=== PATIENT | female | born 1995 | race Two or more races ===

== ENCOUNTER 2017-05-22 00:01 | Emergency (ER) | payer BC ==
[~2017-05-22] VITALS: Ht 152.4 cm; Wt 46.7 kg
[~2017-05-22 00:01] MED LIST: CIPRO500 MG PO; IMODIUM2 MG ORAL; METRONIDAZOLE500 MG ORAL; NORCO 5-325 TA1 EACH ORAL; ZOFRAN ODT4 MG ORAL; ZOFRAN4 M1 ORAL
[2017-05-22] MEDS ORDERED: Ketorolac 30mg Inj IV ONE (00:45)
[2017-05-22 00:55] LABS: APPEARANCE,URINE CLEAR; KETONES,URINE NEGATIVE (NEGATIVE); LEUKOCYTE ESTERASE ,URINE 2+ (NEGATIVE); NITRITE,URINE NEGATIVE (NEGATIVE); PH,URINE 6 (4.5-8.0); PROTEIN,URINE NEGATIVE (NEGATIVE); UROBILINOGEN,URINE NORMAL MG/DL (0.0-1.0)
[2017-05-22 00:59] LABS: BASOPHILS % (AUTO) 0.7 % (0.0-2.0); EOSINOPHILS % (AUTO) 3.8 % (0.0-3.0); LYMPHOCYTES % (AUTO) 35.3 % (20.0-45.0); MEAN CORPUSCULAR HEMOGLOBIN 31.8 PG (27.0-31.0); MEAN CORPUSCULAR HGB CONC 32.2 G/DL (32.0-36.0); MEAN CORPUSCULAR VOLUME 99 FL (80-99); MEAN PLATELET VOLUME 7.8 FL (6.5-10.1); NEUTROPHILS % (AUTO) 53.1 % (45.0-75.0); PLATELET COUNT 248 K/UL (150-450); RED BLOOD COUNT 4.04 M/UL (4.20-5.40); RED CELL DISTRIBUTION WIDTH 12.1 % (11.6-14.8); WHITE BLOOD COUNT 6.9 K/UL (4.8-10.8)
[2017-05-22 01:05] LABS: RBC,URINE 0-2 /HPF (0 - 2)
[2017-05-22 01:06] LABS: SQUAMOUS EPITHELIAL CELL,UR MODERATE /LPF (NONE/OCC)
[2017-05-22 01:23] LABS: ALANINE AMINOTRANSFERASE 9 U/L (3-33); ALBUMIN/GLOBULIN RATIO 2.1 (1.0-2.7); ANION GAP 14 (5-15); ASPARTATE AMINO TRANSFERASE 14 U/L (5-40); CALCIUM 9.4 mg/dL (8.6-10.2); CARBON DIOXIDE 25 mEQ/L (20-30); CHLORIDE 103 mEQ/L (98-107); CREATININE 0.7 mg/dL (0.5-0.9); GLOMERULAR FILTRATION RATE > 60 mL/min (>60); HEMOLYSIS 4; LIPASE 29 U/L (< 60); POTASSIUM 4.4 mEQ/L (3.4-4.9); SODIUM 142 mEQ/L (135-145); TOTAL PROTEIN 6.9 g/dL (6.6-8.7)
[2017-05-22] MEDS ORDERED: ZOFRAN4 MG ORAL (02:58)
[2017-05-22 03:00] VITALS: BP 108/55
[2017-05-22 03:04] VITALS: BP 108/55
--- NOTE | 2017-05-22 03:09 | Emergency Room Report ---
History of Present Illness General Chief Complaint: Abdominal Pain Source: Patient Present Illness HPI Is a 21-year-old female with a history of malrotation of the midgut requiring surgery. Since then she been having abdominal pain with vomiting and diarrhea. She present with abdominal pain for a week. No fever or chills. No nausea no vomiting. Pain is crampy in nature to the upper quadrant area. Vomiting is nonbloody nonbilious. Diarrhea is watery. Ibuprofen now. Pain is 7/10. No urinary complaint. Allergies: Coded Allergies: CODEINE (Unverified Allergy, Unknown, 05/01/15) MORPHINE (Verified Allergy, Unknown, 08/18/11) Patient History Past Medical History: see triage record, old chart reviewed Past Surgical History: other Pertinent Family History: none Social History: Denies: smoking Last Menstrual Period: LAST SUNDAY Now: No Immunizations: other Reviewed Nursing Documentation: PMH: Agreed, PSxH: Agreed Nursing Documentation-PMH Hx Asthma: Yes Review of Systems Eye: Denies: blurred vision, eye pain ENT: Denies: ear pain, nose congestion, throat swelling Respiratory: Denies: cough, shortness of breath Cardiovascular: Denies: chest pain, palpitations Gastrointestinal: Reports: abdominal pain, diarrhea, nausea, vomiting Musculoskeletal: Denies: back pain, joint pain Skin: Denies: rash Neurological: Denies: headache, numbness Endocrine: Denies: increased thirst, increased urine Hematologic/Lymphatic: Denies: easy bruising All Other Systems: negative except mentioned in HPI Physical Exam Vital Signs Date Time Temp Pulse Resp B/P Pulse Ox O2 Delivery O2 Flow Rate FiO2 05/22/17 00:09 98.2 71 18 120/72 100 Room Air vitals normal Sp02 EP Interpretation: reviewed, normal General Appearance: well appearing, no apparent distress, alert Head: normocephalic, atraumatic Eyes: bilateral eye EOMI, bilateral eye PERRL ENT: hearing grossly normal, normal pharynx Neck: full range of motion, supple, no meningismus Respiratory: chest non-tender, lungs clear, normal breath sounds Cardiovascular #1: regular rate, rhythm, no murmur Gastrointestinal: normal bowel sounds, no mass, no organomegaly, no bruit, non- distended, tenderness - Mild, epigastric Musculoskeletal: back normal, gait/station normal, normal range of motion Psychiatric: mood/affect normal Skin: warm/dry Medical Decision Making Diagnostic Impression: Primary Impression: Abdominal pain Qualified Codes: R10.84 - Generalized abdominal pain Additional Impressions: Nausea & vomiting Qualified Codes: R11.2 - Nausea with vomiting, unspecified Diarrhea Qualified Codes: R19.7 - Diarrhea, unspecified ER Course She present with abdominal pain. No evidence of obstruction or infection. Pain better now. We'll discharge him. Lab Results Impression labs unremarkable CT/MRI/US Diagnostic Results CT/MRI/US Diagnostic Results : Imaging Test Ordered: CT abdomen and pelvis Impression read by radiologist. No acute process. Last Vital Signs Date Time Temp Pulse Resp B/P Pulse Ox O2 Delivery O2 Flow Rate FiO2 05/22/17 00:09 98.2 71 18 120/72 100 Room Air Status: improved Disposition: HOME, SELF-CARE Condition: Stable Scripts Ondansetron (Zofran) 4 Mg Tablet 4 MG ORAL Q6H Y for Nausea & Vomiting, #30 TAB 0 Refills Prov: BOZENA RAM M.D. 05/22/17 Referrals: NOT CHOSEN [facility]/,REFERRING (PCP) Patient Instructions: Abdominal Pain, Adult Additional Instructions: followup with your DrAnayeli in 3-7 day. Return if worse. BOZENA RAM M.D. May 22, 2017 03:09
--- NOTE | 2017-05-22 11:02 | Diagnostic Imaging Report ---
Indications: Abdominal pain Technique: Continuous helical CT imaging of the abdomen and pelvis was performed with automatic exposure control following administration of nonionic IV contrast only, on a Siemens sensation [address] scanner. Axial, coronal, sagittal images were reconstructed at 5 mm slice thickness. No oral contrast was administered per requesting physician's order, despite no contraindications listed in either submitted clinical data or tech note.. CTDI volume(s): 11 mGy Total DLP: 513 mGy-cm Findings: Comparison: 05/01/2015 Again, of oral contrast limits evaluation of gastrointestinal tract, nondilated throughout. Appendix unremarkable. No obvious mural thickening, adjacent stranding, extraluminal gas or fluid collections identified. No bladder contracted, limiting evaluation. Periportal edema, mesenteric varices again noted. Portal splenic veins remain patent. Pancreas, spleen, adrenal glands, kidneys, unopacified ureters and urinary bladder, uterus, bilateral adnexal regions, remaining vascular structures, retroperitoneum, mesentery, remainder visualized abdominopelvic anatomy unremarkable. Lung bases and adjacent pleural surfaces clear. No focal skeletal abnormalities are identified. IMPRESSION: No evidence of acute abdominopelvic disease, with limitation as described. Subtle but potentially significant abnormalities the gastrointestinal tract may be missed. Repeat CT scan with full oral and IV contrast preparation recommended for more complete evaluation, as clinically indicated Limited evaluation of gallbladder due to contraction Persistent mild periportal edema. Diagnostic possibilities include elevated right heart pressure, fluid overload, hepatitis, less likely neoplasm Persistent mesenteric varices, etiology indeterminate This correlates with [facility] preliminary report.
== END 2017-05-22 03:05 | disposition home or self-care (01) ==
LOC: EMR 00:44
DX: R10.9 Unspecified abdominal pain (principal); J45.909 Unspecified asthma, uncomplicated; R11.2 Nausea with vomiting, unspecified; R19.7 Diarrhea, unspecified; Z88.6 Allergy status to analgesic agent
CPT/HCPCS: 36415; 74177; 80053; 81003; 81025; 83690; 85025; 96374; 96375; 99284; J1885; J2405; Q9967

== ENCOUNTER 2017-12-28 22:30 | Emergency (ER) | payer BC ==
[~2017-12-28] VITALS: Ht 160 cm; Wt 46.7 kg
[~2017-12-28 22:30] MED LIST changes: +ZOFRAN4 MG ORAL
[2017-12-28] MEDS ORDERED: NKM (22:46)
[2017-12-28 23:27] VITALS: BP 113/78
[2017-12-28] MEDS ORDERED: IBUPROFEN600 MG ORAL (23:40)
--- NOTE | 2017-12-28 23:41 | Emergency Room Report ---
History of Present Illness General Chief Complaint: Sore Throat Source: Patient Present Illness HPI Is a 22-year-old female with a past medical history. She presents with chief complaint of sore throat and itching for the last 3 days. No nausea no vomiting. No fever. Also her thigh cough. Course is to voice. Pain is 7/10. Worse with swallowing. No drooling. Allergies: Coded Allergies: AMOXICILLIN (Verified Allergy, Unknown, 12/28/17) CODEINE (Unverified Allergy, Unknown, 05/01/15) MORPHINE (Verified Allergy, Unknown, 08/18/11) Patient History Past Medical History: see triage record, old chart reviewed Past Surgical History: none Pertinent Family History: none Social History: Denies: smoking Last Menstrual Period: 12/15/17 Now: No : 0 Para: 0 Immunizations: other Reviewed Nursing Documentation: PMH: Agreed, PSxH: Agreed Nursing Documentation-PMH Past Medical History: No Stated History Hx Asthma: Yes Review of Systems Eye: Reports: eye pain, Denies: blurred vision ENT: Reports: nose congestion, throat pain, Denies: ear pain, throat swelling Respiratory: Reports: cough, Denies: shortness of breath Cardiovascular: Denies: chest pain, palpitations Gastrointestinal: Denies: abdominal pain, diarrhea, nausea, vomiting Musculoskeletal: Denies: back pain, joint pain Skin: Denies: rash Neurological: Denies: headache, numbness Endocrine: Denies: increased thirst, increased urine Hematologic/Lymphatic: Denies: easy bruising All Other Systems: negative except mentioned in HPI Physical Exam Vital Signs Date Time Temp Pulse Resp B/P (MAP) Pulse Ox O2 Delivery O2 Flow Rate FiO2 12/28/17 22:43 98.1 103 14 113/78 98 Room Air vitals normal Sp02 EP Interpretation: reviewed, normal General Appearance: well appearing, no apparent distress, alert Head: normocephalic, atraumatic Eyes: bilateral eye PERRL, bilateral eye EOMI ENT: hearing grossly normal, pharyngeal erythema Neck: full range of motion, supple, no meningismus Respiratory: chest non-tender, lungs clear, normal breath sounds Cardiovascular #1: regular rate, rhythm, no murmur Gastrointestinal: normal bowel sounds, non tender, no mass, no organomegaly, no bruit, non-distended Musculoskeletal: back normal, gait/station normal, normal range of motion Psychiatric: mood/affect normal Skin: warm/dry Medical Decision Making Diagnostic Impression: Primary Impression: Acute viral pharyngitis ER Course Patient with a viral illness. No evidence of peritonsillar abscess, retropharyngeal abscess or Lauri angina. We'll discharge home. Last Vital Signs Date Time Temp Pulse Resp B/P (MAP) Pulse Ox O2 Delivery O2 Flow Rate FiO2 12/28/17 23:27 98.1 14 113/78 98 Room Air 12/28/17 22:43 103 Status: improved Disposition: HOME, SELF-CARE Condition: Stable Scripts Ibuprofen* (MOTRIN*) 600 Mg Tablet 600 MG ORAL THREE TIMES A DAY, #30 TAB 0 Refills Prov: BOZENA RAM M.D. 12/28/17 Additional Instructions: followup with your DrAnayeli in 7 days. Salt water gargle. Return if worse. BOZENA RAM M.D. Dec 28, 2017 23:41
== END 2017-12-28 23:27 | disposition home or self-care (01) ==
LOC: EMR 23:01
DX: J02.8 Acute pharyngitis due to other specified organisms (principal); B97.89 Other viral agents as the cause of diseases classified elsewhere; J45.909 Unspecified asthma, uncomplicated; Z88.0 Allergy status to penicillin; Z88.5 Allergy status to narcotic agent
CPT/HCPCS: 99283

== ENCOUNTER 2018-07-22 08:16 | Emergency (ER) | payer BC ==
[~2018-07-22] VITALS: Ht 157.5 cm; Wt 48.5 kg
[~2018-07-22 08:16] MED LIST changes: +IBUPROFEN600 MG ORAL; +NKM
[2018-07-22 08:20] VITALS: BP 113/66
[2018-07-22] MEDS ORDERED: NKM (08:24)
--- NOTE | 2018-07-22 09:01 | Emergency Room Report ---
History of Present Illness General Chief Complaint: Pain Source: Patient, Medical Record Present Illness HPI This patient states that about one week ago she dropped a heavy box at work. She works for [employer]. She states that she continues to have pain on her left great toe. She denies tingling or numbness. She states she also hit her forearms with the box but states that her forearms are not bothering her. She has no other injuries or complaints. Allergies: Coded Allergies: AMOXICILLIN (Verified Allergy, Unknown, 12/28/17) CODEINE (Unverified Allergy, Unknown, 05/01/15) MORPHINE (Verified Allergy, Unknown, 08/18/11) Patient History Past Medical History: none Past Surgical History: other - Bowel surgery Social History: Denies: smoking, alcohol use, drug use Last Menstrual Period: 07/08/18 Reviewed Nursing Documentation: PMH: Agreed; PSxH: Agreed Nursing Documentation-PMH Past Medical History: No History, Except For Hx Asthma: Yes Review of Systems All Other Systems: negative except mentioned in HPI Physical Exam Vital Signs Date Time Temp Pulse Resp B/P (MAP) Pulse Ox O2 Delivery O2 Flow Rate FiO2 07/22/18 08:20 98.1 90 18 113/66 96 Room Air 98.1 Sp02 EP Interpretation: reviewed, normal General Appearance: no apparent distress, alert, GCS 15, non-toxic Head: normocephalic, atraumatic Eyes: bilateral eye normal inspection ENT: hearing grossly normal, normal pharynx, no angioedema, normal voice Neck: normal inspection Respiratory: no respiratory distress, no retraction, no accessory muscle use, speaking full sentences Rectal: deferred Musculoskeletal: back normal, gait/station normal, normal range of motion, non- tender, other - TTP over the Proximal phalanx of the L. great toe. No deformity. No ecchymosis Neurologic: alert, oriented x3, responsive, motor strength/tone normal, sensory intact, speech normal Psychiatric: judgement/insight normal, memory normal, mood/affect normal, no suicidal/homicidal ideation Skin: normal color, no rash, warm/dry, well hydrated Medical Decision Making Diagnostic Impression: Primary Impression: Contusion of toe, left ER Course This patient has contusion of her left great toe. There is no obvious displaced fracture on plain film x-rays of her toe. Overall, the patient's evaluation is benign. The patient was instructed on a hard soled shoe and follow-up with workman's comp clinic. The patient is given return precautions and follow-up instructions. Other X-Ray Diagnostic Results Other X-Ray Diagnostic Results : X-Ray ordered: L. great toe # of Views/Limited Vs Complete: Complete Indication: Pain EP Interpretation: Yes Interpretation: no dislocation, no soft tissue swelling, no fractures Impression: No acute disease Electronically Signed by: Vikram Last Vital Signs Date Time Temp Pulse Resp B/P (MAP) Pulse Ox O2 Delivery O2 Flow Rate FiO2 07/22/18 08:20 98.1 90 18 113/66 96 Room Air 98.1 Status: improved Disposition: HOME, SELF-CARE Condition: Improved Referrals: NOT CHOSEN [facility]/,REFERRING (PCP) Qing Christy DO Jul 22, 2018 09:01
[2018-07-22 09:08] VITALS: BP 124/78
--- NOTE | 2018-07-22 10:46 | Diagnostic Imaging Report ---
Indication: Pain Comparison: None Findings: 3 views of the left hallux obtained. No acute fracture or malalignment identified. No radiopaque foreign body identified. Soft tissues are unremarkable. IMPRESSION: Negative exam
== END 2018-07-22 09:09 | disposition home or self-care (01) ==
LOC: EMR 08:29
DX: S90.112A Contusion of left great toe without damage to nail, initial encounter (principal); W20.8XXA Other cause of strike by thrown, projected or falling object, initial encounter; Y93.89 Activity, other specified; Y92.89 Other specified places as the place of occurrence of the external cause; Y99.0 Civilian activity done for income or pay
CPT/HCPCS: 99283

== ENCOUNTER 2018-09-03 23:05 | Emergency (ER) | payer BC ==
[~2018-09-03] VITALS: Ht 160 cm; Wt 48.5 kg
--- NOTE | 2018-09-03 23:20 | Emergency Room Report ---
History of Present Illness General Chief Complaint: Lower Extremity Injury Source: Patient, Medical Record Present Illness HPI Is a 23-year-old female with no past mental history. She presents with chief complaint of right toe pain. She was moving a heavy bookcase and it slipped and fell directly onto her right great toe. This occurred an hour prior to arrival. Pain is 10 out of 10. Worse with movement and walking. No other injury. No nausea no vomiting. She was wearing her toe. Denies any other trauma. Allergies: Coded Allergies: AMOXICILLIN (Verified Allergy, Unknown, rash, 09/03/18) CODEINE (Unverified Allergy, Unknown, rash, 09/03/18) MORPHINE (Verified Allergy, Unknown, rash, 09/03/18) Patient History Past Medical History: see triage record, old chart reviewed Past Surgical History: other Pertinent Family History: none Social History: Denies: smoking Last Menstrual Period: Aug 30, 2018 Now: No Immunizations: other Reviewed Nursing Documentation: PMH: Agreed; PSxH: Agreed Nursing Documentation-PMH Past Medical History: No History, Except For Hx Asthma: Yes Review of Systems Eye: Denies: eye pain, blurred vision ENT: Denies: ear pain, nose congestion, throat swelling Respiratory: Denies: cough, shortness of breath Cardiovascular: Denies: chest pain, palpitations Gastrointestinal: Denies: abdominal pain, diarrhea, nausea, vomiting Musculoskeletal: Reports: joint pain; Denies: back pain Skin: Denies: rash Neurological: Denies: headache, numbness Endocrine: Denies: increased thirst, increased urine Hematologic/Lymphatic: Denies: easy bruising All Other Systems: negative except mentioned in HPI Physical Exam Vital Signs Date Time Temp Pulse Resp B/P (MAP) Pulse Ox O2 Delivery O2 Flow Rate FiO2 09/03/18 23:12 98.2 88 16 129/84 97 Room Air 98.2 vitals normal Sp02 EP Interpretation: reviewed, normal General Appearance: well appearing, no apparent distress, alert Head: normocephalic, atraumatic Eyes: bilateral eye PERRL, bilateral eye EOMI ENT: hearing grossly normal, normal pharynx Neck: full range of motion, supple, no meningismus Respiratory: chest non-tender, lungs clear, normal breath sounds Cardiovascular #1: regular rate, rhythm, no murmur Gastrointestinal: normal bowel sounds, non tender, no mass, no organomegaly, no bruit, non-distended Musculoskeletal: back normal, gait/station normal, normal range of motion, other - Right great toe: There is ecchymosis/subungual hematoma to about 40% of the nail. Tender to palpation. No deformity. Neurologic: alert, oriented x3 Psychiatric: mood/affect normal Skin: warm/dry Procedures Splinting Splinting : Consent: Verbal Location: great toe, right Hand-Made Type: ruthy tape Pre-Proc Neuro Vasc Exam: normal Post-Proc Neuro Vasc Exam: normal Patient Tolerated: Well Complications: None Additional Procedure Procedure Narrative Procedure: Trephination Indication: Subungal hematoma Description: Nail clean with alcohol pad. I trephinated the nail with a cautery. Patient tolerated procedure without a problem. No competition. Medical Decision Making Diagnostic Impression: Primary Impression: Contusion of toe with damage to nail Qualified Codes: S90.211A - Contusion of right great toe with damage to nail, initial encounter Additional Impression: Subungual hematoma of great toe of right foot Qualified Codes: S90.211A - Contusion of right great toe with damage to nail, initial encounter ER Course Patient presents with contusion to the great toe. No fracture. She felt better after I trephinated the nail. We'll discharge home. Last Vital Signs Date Time Temp Pulse Resp B/P (MAP) Pulse Ox O2 Delivery O2 Flow Rate FiO2 09/03/18 23:12 98.2 88 16 129/84 97 Room Air 98.2 Status: improved Disposition: HOME, SELF-CARE Condition: Stable Scripts Ibuprofen* (MOTRIN*) 600 Mg Tablet 600 MG ORAL THREE TIMES A DAY, #30 TAB 0 Refills Prov: Jose Rojas MD 09/04/18 Additional Instructions: Follow-up with your doctor in 7 days. Return if worse. Elevate foot. Jose Rojas MD Sep 03, 2018 23:20
[2018-09-03] MEDS ORDERED: Norco 5mg/325mg tab ORAL ONE (23:30)
[2018-09-04] MEDS ORDERED: IBUPROFEN600 MG ORAL (00:11)
[2018-09-04 00:20] VITALS: BP 115/75
--- NOTE | 2018-09-04 12:06 | Diagnostic Imaging Report ---
Indication: Pain in the right toes Comparison: None Findings: 3 views of the right forefoot obtained. No acute fracture or malalignment, soft tissue swelling or radiopaque foreign body are identified. IMPRESSION: Negative study
== END 2018-09-04 00:18 | disposition home or self-care (01) ==
LOC: EMR 23:21
DX: S90.211A Contusion of right great toe with damage to nail, initial encounter (principal); W22.8XXA Striking against or struck by other objects, initial encounter; Y92.9 Unspecified place or not applicable; J45.909 Unspecified asthma, uncomplicated; Z88.5 Allergy status to narcotic agent; Z88.0 Allergy status to penicillin
CPT/HCPCS: 99282

== ENCOUNTER 2020-09-12 03:15 | Emergency (ER) | payer BC ==
[~2020-09-12] VITALS: Ht 160 cm; Wt 48.5 kg
--- NOTE | 2020-09-12 03:29 | NUR ---
ED Nurse Note: Patient walked in from home d/t right wrist pain, pt reports she had surgery for ganglion cysts 4 days ago and takes tramadol at home but pain is unrelieved. Patient reports pain is burning and throbbing 8/10. Patient aao x 4 and ambulatory with steady gait. Patient in stable condition during assessment.
[2020-09-12 03:30] VITALS: BP 122/72
--- NOTE | 2020-09-12 03:38 | Emergency Room Report ---
History of Present Illness General Chief Complaint: Pain Source: Patient Present Illness HPI Patient is a 25-year-old female presents for increased right-sided wrist pain. Reports having recent surgery to her right wrist. Reports having gradually worsening pain associated with some finger numbness. Surgery occurred 3 days prior to arrival. Reports taking tramadol without any relief of pain. Denies any fever or discharge from the wound. She did not attempt to remove her dressing. She apparently was unable to contact her surgeon. 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 COVID-19 Screening: Negative COVID-19 COVID-19 Testing Source: ORAL 07/2020 Patient History Past Medical History: see triage record Last Menstrual Period: 07/2020 Now: No : 0 Para: 0 Reviewed Nursing Documentation: PMH: Agreed; PSxH: Agreed Nursing Documentation-PMH Past Medical History: No History, Except For Hx Asthma: Yes Hx Gastrointestinal Problems: Yes Review of Systems Constitutional: Reports: no symptoms Eye: Reports: no symptoms ENT: Reports: no symptoms Respiratory: Reports: no symptoms Cardiovascular: Reports: no symptoms Gastrointestinal: Reports: no symptoms Genitourinary: Reports: no symptoms Musculoskeletal: Reports: see HPI Skin: Reports: no symptoms Psychiatric: Reports: no symptoms Neurological: Reports: numbness - Fingers to the right hand. Endocrine: Reports: no symptoms Hematologic/Lymphatic: Reports: no symptoms Allergic: Reports: no symptoms Physical Exam Vital Signs Date Time Temp Pulse Resp B/P (MAP) Pulse Ox O2 Delivery O2 Flow Rate FiO2 09/12/20 03:16 98.1 94 22 128/74 (92) 98 Room Air General Appearance: well appearing, no apparent distress, alert, GCS 15 Head: normocephalic, atraumatic ENT: hearing grossly normal, normal voice Neck: full range of motion, supple Respiratory: no respiratory distress, speaking full sentences Gastrointestinal: normal inspection Musculoskeletal: other - Healing incision, no erythema or discharge. Neurologic: motor strength/tone normal, service center supervisor III-XII nml as tested, oriented x3, normal gait Psychiatric: mood/affect normal Skin: other - Healing wound, no erythema, no drainage, Medical Decision Making Diagnostic Impression: Primary Impression: Postoperative pain ER Course Patient presented for right hand pain. Differential diagnosis include was not limited to postoperative pain, wound infection, neuropathy among others. Patient has a benign exam and does not appear to require any imaging or laboratory testing at this time. Patient appears to be having postoperative pain. Patient's initial dressing was loosened. Does not appear to be in evidence of infection at this time. Patient is currently taking antibiotics. Patient given Toradol with improvement in pain. She was given prescription for ibuprofen. Patient was advised to follow-up with her surgeon for further evaluation and treatment of postoperative pain. She is advised to return if she had any other concerns. The patient is advised to follow up with primary care doctor in 2-3 days. Patient is advised to return if any worsening condition or if any changes in status that are concerning. This report is dictated with [employer] executive office manager software which may occasionally lead to discrepancies related to use of this software. Last Vital Signs Date Time Temp Pulse Resp B/P (MAP) Pulse Ox O2 Delivery O2 Flow Rate FiO2 09/12/20 03:30 98.1 75 20 122/72 98 Room Air Status: improved Disposition: HOME, SELF-CARE Condition: Stable Scripts Ibuprofen (Ibuprofen) 400 Mg Tablet 400 MG PO EVERY 8 HOURS, #30 TAB Prov: Wan Ruano MD 09/12/20 Wan Ruano MD Sep 12, 2020 03:38
[2020-09-12] MEDS ORDERED: IBUPROFEN400 M1 PO (03:52)
[2020-09-12 04:00] VITALS: BP 127/89
[2020-09-12] MEDS ORDERED: Ketorolac 60mg Inj IM ONE (04:00)
--- NOTE | 2020-09-12 04:00 | NUR ---
ER DISCHARGE NOTE: Patient is cleared to be discharged per ERMD, pt is aox4, on room air, with stable vital signs. pt was given dc and prescription instructions, pt was able to verbalize understanding, pt id band removed. pt is able to ambulate with steady gait. pt took all belongings. pt right wrist wrapped in jeannette wrap by studio technician. pt stable upon discharge.
== END 2020-09-12 04:00 | disposition home or self-care (01) ==
LOC: EMR 03:28
DX: G89.18 Other acute postprocedural pain (principal); Z88.6 Allergy status to analgesic agent
CPT/HCPCS: 96372; 99283